=== PATIENT | female | born 1955 | race Caucasian/White ===

== ENCOUNTER → 2020-02-09 11:27 | Outpatient (BNVA) | payer SELFPAY | PROVIDERS: Family Provider Nurse Practitioner; PCP Nurse Practitioner; Visit Provider Nurse Practitioner Family | DX: R30.0 Dysuria (principal) | CPT/HCPCS: 81000 ==

== ENCOUNTER → 2020-08-22 13:24 | Outpatient (BNVA) | payer MEDICARE, BC, SELFPAY | PROVIDERS: Family Provider Nurse Practitioner; PCP Nurse Practitioner; Visit Provider Nurse Practitioner | DX: M47.16 Other spondylosis with myelopathy, lumbar region (principal); E55.9 Vitamin D deficiency, unspecified; Z13.6 Encounter for screening for cardiovascular disorders; R91.1 Solitary pulmonary nodule | CPT/HCPCS: 80053; 80061; 82306; 84443; 85025 ==

== ENCOUNTER 2020-08-26 08:20 | Outpatient (CLI) | payer MEDICARE, BC, SELFPAY ==
--- NOTE | 2020-08-26 08:30 | CT_ITS ---
WS: [id number] CT scan of the chest with IV contrast, additional two-dimensional coronal and sagittal reconstruction was performed. 08/26/2020 Clinical Data: R91.1 - Solitary pulmonary nodule Comparison: CT chest, 02/21/2007, PA and lateral chest, 12/03/2018. DLP: 196.19 mGy-cm. All CT scans at [facility] use at least one of these dose optimization techniques: automat ed exposure control; mA and/or kV adjustment per patient size (includes targeted exams where dose is matched to clinical indication); or iterative reconstruction. Findings: No nodules, masses or effusions are seen. No pneumonia or pneumothorax is present. The heart size is normal with no pericardial effusion. There are coronary artery calcifications. The pulmonary arterial system and thoracic aorta demonstrate no abnormalities or dilatations. The thyroid gland shows reynaldo l enhancement. The trachea bifurcates normally into the bronchi. There is no axillary or significant mediastinal adenopathy. The upper abdomen demonstrates no abnormalities. There is minimal osteoarthritic change of the thorac ic vertebral bodies. CT/CT chest w con* [id number] Impression: Negative CT scan of the chest with IV contrast.
[2020-08-26] MEDS: iohexol 300 mg/mL 100 mL Btl IV (08:59)
== END 2020-08-26 08:21 | disposition home or self-care (01) ==
LOC: RADWPI 08:22
PROVIDERS: Family Provider Nurse Practitioner; PCP Nurse Practitioner; Visit Provider Nurse Practitioner
DX: R91.1 Solitary pulmonary nodule (principal)
CPT/HCPCS: 71260; Q9967

== ENCOUNTER → 2021-01-30 13:27 | Outpatient (BNVA) | payer MEDICARE, BC, SELFPAY | PROVIDERS: Family Provider Nurse Practitioner; PCP Nurse Practitioner; Visit Provider Nurse Practitioner | DX: J44.9 Chronic obstructive pulmonary disease, unspecified (principal); M47.16 Other spondylosis with myelopathy, lumbar region; I10 Essential (primary) hypertension; E55.9 Vitamin D deficiency, unspecified; F41.9 Anxiety disorder, unspecified | CPT/HCPCS: 80053; 82306 ==

== ENCOUNTER → 2021-08-18 10:28 | Outpatient (BNVA) | payer MEDICARE, BC, SELFPAY | PROVIDERS: Family Provider Nurse Practitioner; PCP Nurse Practitioner; Visit Provider Nurse Practitioner | DX: I10 Essential (primary) hypertension (principal) | CPT/HCPCS: 80053; 80061; 82607; 84443; 85025 ==

== ENCOUNTER → 2022-02-28 15:14 | Outpatient (BNVA) | payer MEDICARE, BC, SELFPAY | PROVIDERS: Family Provider Nurse Practitioner; PCP Nurse Practitioner; Visit Provider Nurse Practitioner | DX: I10 Essential (primary) hypertension (principal); J44.9 Chronic obstructive pulmonary disease, unspecified; E55.9 Vitamin D deficiency, unspecified | CPT/HCPCS: 80053; 80061; 82306; 84443; 85025 ==

== ENCOUNTER → 2022-06-04 10:34 | Outpatient (BNVA) | payer MEDICARE, BC, SELFPAY | PROVIDERS: Family Provider Nurse Practitioner; PCP Nurse Practitioner; Visit Provider Nurse Practitioner | DX: F41.9 Anxiety disorder, unspecified (principal); J44.9 Chronic obstructive pulmonary disease, unspecified; I10 Essential (primary) hypertension | CPT/HCPCS: 80053; 80061; 84443; 85025 ==

== ENCOUNTER → 2022-09-17 08:58 | Outpatient (BNVA) | payer MEDICARE, BC, SELFPAY | PROVIDERS: Family Provider Nurse Practitioner; PCP Nurse Practitioner; Visit Provider Nurse Practitioner | DX: I10 Essential (primary) hypertension (principal); F41.9 Anxiety disorder, unspecified; J44.9 Chronic obstructive pulmonary disease, unspecified | CPT/HCPCS: 80053; 80061; 84443; 85025 ==

== ENCOUNTER → 2023-01-02 10:50 | Outpatient (BNVA) | payer MEDICARE, BC, SELFPAY | PROVIDERS: Family Provider Nurse Practitioner; PCP Nurse Practitioner; Visit Provider Nurse Practitioner | DX: F41.9 Anxiety disorder, unspecified (principal); I10 Essential (primary) hypertension; E78.2 Mixed hyperlipidemia | CPT/HCPCS: 80053; 80061; 84443; 85025 ==

== ENCOUNTER → 2023-06-20 11:01 | Outpatient (BNVA) | payer MEDICARE, BC, SELFPAY | PROVIDERS: Family Provider Nurse Practitioner; PCP Nurse Practitioner; Visit Provider Nurse Practitioner | DX: E78.2 Mixed hyperlipidemia; I10 Essential (primary) hypertension; E55.9 Vitamin D deficiency, unspecified | CPT/HCPCS: 71046; 80053; 82306; 85025; 85651; 86140 ==

== ENCOUNTER → 2023-09-19 10:14 | Outpatient (BNVA) | payer MEDICARE, BC, SELFPAY | PROVIDERS: Family Provider Nurse Practitioner; PCP Nurse Practitioner; Visit Provider Nurse Practitioner | DX: F41.9 Anxiety disorder, unspecified (principal); E78.2 Mixed hyperlipidemia; J44.9 Chronic obstructive pulmonary disease, unspecified; M47.16 Other spondylosis with myelopathy, lumbar region; J30.89 Other allergic rhinitis; J30.2 Other seasonal allergic rhinitis; I10 Essential (primary) hypertension; J43.1 Panlobular emphysema | CPT/HCPCS: 80053; 80061; 84443 ==

== ENCOUNTER → 2023-10-31 14:41 | Outpatient (BNVA) | payer MEDICARE, BC, SELFPAY | PROVIDERS: Family Provider Nurse Practitioner; PCP Nurse Practitioner; Visit Provider Nurse Practitioner | DX: R19.7 Diarrhea, unspecified (principal) | CPT/HCPCS: 87045; 87427; 87449; 87493 ==

== ENCOUNTER → 2023-11-14 11:46 | Outpatient (BNVA) | payer MEDICARE, BC, SELFPAY | PROVIDERS: Family Provider Nurse Practitioner; PCP Nurse Practitioner; Visit Provider Nurse Practitioner Family | DX: J02.9 Acute pharyngitis, unspecified (principal) | CPT/HCPCS: 87070; 87880 ==

== ENCOUNTER 2023-11-17 03:31 | Emergency (ER) | payer MEDICARE, SELFPAY ==
[2023-11-17 03:44] VITALS: BP 136/72; PULSE 89; RESP 18; TEMP 36.8; O2SAT 96; BMI 24.5
--- NOTE | 2023-11-17 03:56 | USR_ITS ---
PROCEDURE INFORMATION: Exam: US Duplex Left Lower Extremity Veins, Limited Exam date and time: 11/17/2023 5:08 AM Age: 68 years old Clinical indication: Pain; Leg, lower; Left TECHNIQUE: Imaging protocol: Real-time duplex ultrasound of the left extremity with 2-D solorzano scale, color Doppler flow and spectral waveform analysis including responses to compression and other maneuvers (when performed) with image documentation. Limited exam focused on the left lower extremity veins. COMPARISON: No relevant prior studies available. FINDINGS: Left deep veins: Unremarkable. The common femoral, femoral, proximal profunda femoral and popliteal veins are patent without thrombus. Normal Doppler waveforms. Normal compressibility and/or augmentation response. Superficial veins: Greater saphenous vein at the saphenofemoral junction is patent without thrombus. Soft tissues: Unremarkable. US/CV venous duplex [facility] [id number] IMPRESSION: No evidence of deep vein thrombosis.
[2023-11-17] MEDS: dexamethasone 4 mg Tablet 10 MG PO (04:04)
[2023-11-17] MEDS: HYDROcodone-acetaminophen 5-325 mg Tablet 1 TAB PO (04:04)
--- NOTE | 2023-11-17 05:11 | ED_ITS ---
HPI - Neck Pain/Injury General: Chief Complaint: Neck Pain/Injury Stated Complaint: pain up neck and when breathing maybe new med Time Seen by Provider: 11/17/23 03:47 History of Present Illness: Patient presents with sore throat x 4 days. Had strep test which was neg 4 days ago but placed on Augmentin empirically. Patient states she still has sore throat. Also complaining of left calf tenderness. No trauma. Hurts to walk on it or with palpation. Review of Systems ENMT: Denies: uvular edema PFSH ED PFSH: Medical History Cigarette smoker Seasonal and perennial allergic rhinitis COPD (chronic obstructive pulmonary disease) Essential (primary) hypertension Lumbar spondylosis with myelopathy Chronic back pain Lung nodule < 6cm on CT Surgical History History of bilateral tubal ligation Family History Mother Cancer Father Cancer Social History Smoking and tobacco/nicotine status: current every day tobacco/nicotine user cigarettes Packs smoked per day: 1 Second hand smoke exposure: Yes Alcohol intake: never Substance/Drug Use: never Adopted: No Caregiver/support person: No Lives independently: Yes Household members: spouse Housing: House Marital status: service: No Current occupational status: employed Do you think of yourself as: Straight/Heterosexual Current gender identity: Female Physical Exam Const: COMMON NORMALS: no acute distress HENMT: THROAT: posterior oropharynx normal, uvula midline and tonsils absent; no peritonsillar mass, no postnasal drainage and no uvular edema Lymph: LYMPHATIC: lymphadenopathy (Anterior and posterior cervical lymphadenopathy noted) Resp: COMMON NORMALS: normal respiratory effort Extremity: LEFT LOWER EXTREMITY: Yes lower leg (Left calf tenderness to palpation) Course Vital Signs: Vital signs: Vital Signs Temperature 98.3 F 11/17/23 03:44 Pulse Rate 89 11/17/23 03:44 Respiratory Rate 18 11/17/23 03:44 Blood Pressure 136/72 11/17/23 03:44 Pulse Oximetry 96 11/17/23 03:44 MDM - Neck Pain/Injury Medical Decision Making Patient has been on Augmentin with no relief and has had a negative strep test and most likely patient's symptoms are from viral pharyngitis. There is no signs of CAGE MAKER MACHINE or RPA. Patient does not have any change in voice. Has no trismus. Has no neck stiffness. No meningeal signs. Patient does have bilateral anterior lymphadenopathy and posterior lymphadenopathy. Patient was given dexamethasone and pain medicine for this. Denies any indication for antibiotics at this time. Patient also with left calf tenderness. Tenderness is mostly on the anterior aspect of the calf most likely musculoskeletal will get ultrasound to rule out DVT. This was negative for any DVT. Will discharge patient with steroids to help with symptoms All radiology interpretation(s) finalized by discharge Discharge Plan Discharge Patient Disposition: Home Clinical Impression: Pharyngitis, Lymphadenopathy, Strain of left calf muscle Condition: Stable Prescriptions: New Medrol (Negrito) 4 mg tablets,dose pack See Rx Instructions .ROUTE .COMPLEX Qty: 21 0RF Rx Instructions: for 6 days No Action ibuprofen 200 mg capsule 200 mg PO Q6H PRN Hold Instructions: Kidney injury omega 9-[id number]-fish oil [Fish Oil] 1,000 mg (120 mg-180 mg) capsule 1 cap PO BID Qty: 60 0RF Rx Instructions: OTC albuterol sulfate 2.5 mg /3 mL (0.083 %) solution for nebulization 2.5 mg inhalation Q4H PRN (Reason: shortness of breath or wheezing) Qty: 75 5RF (DME) Disposable nebulizer circuit See Rx Instructions .ROUTE .MEDSUPPLY Qty: 1 0RF Rx Instructions: As directed amoxicillin-pot clavulanate 875-125 mg tablet 1 tab PO BID Qty: 20 0RF (DME) nebulizers Misc See Rx Instructions .ROUTE .MEDSUPPLY Qty: 1 0RF Rx Instructions: As directed prednisone 10 mg tablet 10 mg PO DAILY Qty: 7 0RF citalopram 40 mg tablet 40 mg PO DAILY 30 Days Qty: 30 2RF fenofibrate nanocrystallized [Tricor] 145 mg tablet 145 mg PO DAILY Qty: 30 2RF gabapentin 300 mg capsule 300 mg PO BID Qty: 60 2RF levalbuterol tartrate [Xopenex HFA] 45 mcg/actuation HFA aerosol inhaler 2 inh inhalation Q6H Qty: 15 2RF montelukast [Singulair] 10 mg tablet 10 mg PO DAILY Qty: 30 2RF tizanidine 2 mg tablet 2 mg PO .PM dose Qty: 30 2RF tramadol 50 mg tablet 50 mg PO Q6H PRN (Reason: pain) Qty: 120 2RF valsartan [Diovan] 320 mg tablet 320 mg PO DAILY Qty: 30 2RF fluticasone propion-salmeterol [Advair Diskus] 250-50 mcg/dose blister with device 1 inh inhalation Q12H Qty: 60 2RF promethazine-DM 6.25-15 mg/5 mL syrup 5 - 10 ml PO Q6H PRN (Reason: cough) Qty: 240 0RF prednisone 20 mg tablet 20 mg PO BID Qty: 10 0RF levofloxacin 500 mg tablet 500 mg PO DAILY Qty: 7 0RF (DME) nebulizer accessories Kit See Rx Instructions .Route Qty: 1 0RF Rx Instructions: As directed Discharge Orders: Discharge ED (Routine); Ordered 11/17/23 Ordered By: Hemal Harrison Referrals: Robyn Hernandez, ORGANIZATIONAL DEVELOPMENT DIRECTOR-C [Primary Care Provider] - Discharge Diet: Advance as tolerated Discharge Activity: Resume usual activity Patient Instructions: Opioid Safety, Pain Management Coding Level of Care Code ED 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
[2023-11-17 05:54] VITALS: BP 136/72; PULSE 89; RESP 18; TEMP 36.8; O2SAT 96
== END 2023-11-17 05:55 | disposition home or self-care (01) ==
PROVIDERS: Emergency Provider Emergency Medicine; PCP Nurse Practitioner
DX: J02.9 Acute pharyngitis, unspecified (principal); R59.1 Generalized enlarged lymph nodes; S86.112A Strain of other muscle(s) and tendon(s) of posterior muscle group at lower leg level, left leg, initial encounter; F17.210 Nicotine dependence, cigarettes, uncomplicated; J44.9 Chronic obstructive pulmonary disease, unspecified; I10 Essential (primary) hypertension; X58.XXXA Exposure to other specified factors, initial encounter
CPT/HCPCS: 93971; 99284; J8540

== ENCOUNTER 2023-12-08 17:22 | Emergency (ER) | payer MEDICARE, SELFPAY ==
[2023-12-08] VITALS (13 sets, daily range): BP systolic 107–155; BP diastolic 65–81; PULSE 107–125; RESP 13–34; TEMP 37.2; O2SAT 86–99; BMI 26.0
--- NOTE | 2023-12-08 17:47 | XRR_ITS ---
PROCEDURE INFORMATION: Exam: XR Chest Exam date and time: 12/08/2023 5:56 PM Age: 68 years old Clinical indication: Chest pressure; Patient HX: PT arrived with full body rigors with C/O i'm freezing , chest pain, SOB, neck/jaw pain that has been ongoing for a few days but worsened today. PT was shaking so much that an ekg was unable to be done in triage, PT moved to a room. Spo2 couldn't gather information so oxygen was placed d/t pt's increased work of breathing and tachypnea TECHNIQUE: Imaging protocol: Radiologic exam of the chest. Views: 1 view. COMPARISON: CR XR chest 2V* [id number] 06/20/2023 11:01 AM FINDINGS: Lungs: Mild pulmonary hyperinflation is similar to prior. Bibasilar atelectasis. No focal consolidation. Pleural spaces: Unremarkable. No pleural effusion. No pneumothorax. Heart/Mediastinum: Stable cardiomediastinal contours. Vasculature: Atherosclerotic aortic calcifications. Bones/joints: Unremarkable. XR/XR chest 1V portable [id number] IMPRESSION: 1. No acute findings. 2. Stable mild cardiomegaly without failure.
--- NOTE | 2023-12-08 17:47 | ECG_ITS ---
[facility] Test Date: 2023-12-08 Pat Name: Destiny Palm Department: Room: Gender: Female Long Term Care Phlebotomist: : 1955 Requested By: Benjamin Arango Order Number: [id number] Jessica MD: Kenzie Rico M.D. Measurements Intervals [place] Rate: 108 P: 75 OH: 132 QRS: 21 QRSD: 86 T: 69 QT: 343 QTc: 462 Interpretive Statements SINUS TACHYCARDIA ABNORMAL RHYTHM ECG No previous ECG available for comparison Electronically Signed On 12-08-2023 20:38:18 CDT by Kenzie Rico M.D. [email or web address]
--- NOTE | 2023-12-08 17:49 | W.ED.CHESTPA ---
Documented by User: Benjamin Ingram DO 12/09/23 05:45 HPI - Chest Pain General: Chief Complaint: Chest Pain Stated Complaint: chest pains, SOB, neck and back pain Time Seen by Provider: 12/08/23 17:47 History of Present Illness: 68-year-old female presents to the emergency room with complaints of chest pain shortness of breath pain radiates into her neck and back. She has no known history of coronary artery disease. No recent trauma no fever sweats chills no productive cough. Patient describes pain as feeling a ripping sensation into her back and into her neck. No associated shortness of breath no orthopnea she has no known history of coronary artery disease Associated symptoms: Deny abdominal pain, dyspnea or fever(s) Related Data Home Medications Medication Instructions Recorded Confirmed ibuprofen 200 mg capsule 200 mg PO Q6H PRN 02/09/20 11/14/23 Previous Rx's Medication Instructions Recorded nebulizers #1 ea 06/20/23 prednisone 10 mg tablet 10 mg PO DAILY #7 tabs 06/20/23 Disposable nebulizer circuit #1 ea 07/01/23 albuterol sulfate 2.5 mg/3 mL 2.5 mg (3 mL) inhalation Q4H PRN 07/01/23 (0.083 %) solution for nebulization shortness of breath or wheezing #75 mL omega 9-hmq-clg-fish oil 1,000 mg 1 cap PO BID #60 caps 07/01/23 (120 mg-180 mg) capsule (Fish Oil) citalopram 40 mg tablet 40 mg PO DAILY 30 days #30 tabs 09/19/23 fenofibrate nanocrystallized 145 145 mg PO DAILY #30 tabs 09/19/23 mg tablet (Tricor) fluticasone 250 mcg-salmeterol 50 1 inh inhalation Q12H #60 ea 09/19/23 mcg/dose blistr powdr for inhalation (Advair Diskus) gabapentin 300 mg capsule 300 mg PO BID #60 caps 09/19/23 levalbuterol tartrate 45 2 inh inhalation Q6H #15 grams 09/19/23 mcg/actuation aerosol inhaler (Xopenex HFA) montelukast 10 mg tablet 10 mg PO DAILY #30 tabs 09/19/23 (Singulair) tizanidine 2 mg tablet 2 mg PO .PM dose #30 tabs 09/19/23 tramadol 50 mg tablet 50 mg PO Q6H PRN pain #120 tabs 09/19/23 valsartan 320 mg tablet (Diovan) 320 mg PO DAILY #30 tabs 09/19/23 levofloxacin 500 mg tablet 500 mg PO DAILY #7 tabs 10/04/23 nebulizer accessories #1 ea 10/04/23 prednisone 20 mg tablet 20 mg PO BID #10 tabs 10/04/23 promethazine-DM 6.25 mg-15 mg/5 mL 5 - 10 ml PO Q6H PRN cough #240 mL 10/04/23 oral syrup amoxicillin 875 mg-potassium 1 tab PO BID #20 tabs 11/14/23 clavulanate 125 mg tablet methylprednisolone 4 mg tablets in See Rx Instructions PO .COMPLEX 11/17/23 a dose pack (Medrol (Negrito)) #21 ea Allergies Allergy/AdvReac Type Severity Reaction Status Date / Time Sulfa (Sulfonamide Allergy ALGY-Hives Verified 12/08/23 17:46 Antibiotics) Review of Systems Const: Denies: fever(s) or chills Card: Denies: chest pain Resp: Denies: dyspnea GI: Denies: abdominal pain : Denies: dysuria, urinary frequency or urinary urgency Musc: Denies: neck pain or back pain Skin/Breast: Denies: rash PFSH ED PFSH: Medical History Cigarette smoker Seasonal and perennial allergic rhinitis COPD (chronic obstructive pulmonary disease) Essential (primary) hypertension Lumbar spondylosis with myelopathy Chronic back pain Lung nodule < 6cm on CT Surgical History History of bilateral tubal ligation Family History Mother Cancer Father Cancer Social History Smoking and tobacco/nicotine status: current every day tobacco/nicotine user cigarettes Packs smoked per day: 1 Second hand smoke exposure: Yes Alcohol intake: never Substance/Drug Use: never Adopted: No Caregiver/support person: No Lives independently: Yes Household members: spouse Housing: House Marital status: service: No Current occupational status: employed Do you think of yourself as: Straight/Heterosexual Current gender identity: Female Physical Exam Const: GENERAL APPEARANCE: cooperative ORIENTATION/CONSCIOUSNESS: Yes awake, Yes oriented to person, Yes oriented to place and Yes oriented to time HENMT: COMMON NORMALS: normocephalic, atraumatic and hearing grossly normal bilaterally HEAD & SCALP: normocephalic and atraumatic Resp: COMMON NORMALS: normal respiratory effort, No retractions, No use of accessory muscles and clear to auscultation bilaterally AUSCULTATION: clear to auscultation bilaterally Cardio: COMMON NORMALS: regular rhythm and No murmurs present (Cardio) RATE: tachycardic RHYTHM: regular rhythm GI: COMMON NORMALS: Soft to palpation and No hepatosplenomegaly present AUSCULTATION: Yes normoactive bowel sounds PALPATION: Yes Soft to palpation, No Tenderness to palpation present (GI), No Guarding due to palpation present (GI) and Yes No hepatosplenomegaly present Extremity: COMMON NORMALS: normal to inspection, capillary refill normal, no clubbing, cyanosis or edema, no calf tenderness and no pedal edema OTHER: Femoral pulses equal bilaterally Neuro: SENSORIUM/ORIENTATION: Yes oriented to person, Yes oriented to place and Yes oriented to time Skin: COMMON NORMALS: no rashes or lesions noted GENERAL SKIN EXAM: no rashes or lesions noted Course Vital Signs: Vital signs: Vital Signs Temperature 98.9 F 12/08/23 17:31 Pulse Rate 123 H 12/08/23 19:45 Respiratory Rate 16 12/08/23 19:45 Blood Pressure 107/77 12/08/23 19:45 Pulse Oximetry 91 12/08/23 19:45 Oxygen Delivery Me thod Room Air 12/08/23 19:45 MDM - Chest Pain Medical Decision Making Initial chest x-ray no widening of the mediastinum discussed case with Dr. Thomas. CTA chest has been ordered. Care signed out to Dr. Thomas at change of shift. See final notes for diagnosis and disposition. 68-year-old female with chest pain tearing into her back. I received this patient in checkout at shift change. Troponin was minimally elevated. Patient was persistently tachycardic. Chest x-ray was stable. CTA of the chest shows acute focal rupture of the right lateral wall of the ascending thoracic aorta with a small to moderate amount of blood. Spoke with chest surgery at [facility]. He is requesting more images currently. I have an accepting physician (josh) in the ER should he choose to accept the patient. She will go by air. [facility] is en route. Current vitals, blood pressure 107/77, heart rate sinus 120, saturations 94% on room air, respirations 22. Spoke with CTS again after having viewed additional images. He is willing to take the patient. ER has accepted. Air crew is here to transfer. she remains awake and alert. vitals stable. Lab Data 12/08/23 18:04 12/08/23 18:04 Radiology Impressions Chest X-Ray 12/08/23 17:47 IMPRESSION: 1. No acute findings. 2. Stable mild cardiomegaly without failure. Chest CTA 12/08/23 19:45 IMPRESSION: 1. 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 2. Remainder stable. COMMENTS: The presence of pulmonary emphysema on CT is an independent risk factor for lung cancer. In the absence of a history or active diagnosis of lung cancer, it is recommended that this patient with emphysema be evaluated for enrollment in a low dose CT lung cancer screening program. Laboratory Results WBC 7.07 10^3/uL (3.29-11.43) 12/08/23 18:04 RBC 3.52 10^6/uL (3.85-5.65) L 12/08/23 18:04 Hgb 11.00 g/dL (11.27-16.99) L 12/08/23 18:04 Hct 35.0 % (36-47) L 12/08/23 18:04 MCV 99.4 fl (85-98) H 12/08/23 18:04 MCH 31.3 pg (27-33) 12/08/23 18:04 MCHC 31.4 g/dL (30-55) 12/08/23 18:04 RDW 13.9 % (12.1-15.1) 12/08/23 18:04 Plt Count 288 10^3/cmm (157-399) 12/08/23 18:04 MPV 9.5 fL (7.4-10.4) 12/08/23 18:04 Neut % (Auto) 88.6 % 12/08/23 18:04 Lymph % (Auto) 8.2 % 12/08/23 18:04 Lee % (Auto) 2.1 % 12/08/23 18:04 Eos % (Auto) 0.1 % 12/08/23 18:04 Baso % (Auto) 0.6 % 12/08/23 18:04 Neut # (Auto) 6.26 10^3/uL (1.8-7.7) 12/08/23 18:04 Lymph # (Auto) 0.6 10^3/uL (0.8-4.8) L 12/08/23 18:04 Lee # (Auto) 0.2 10^3/uL (0.2-0.9) 12/08/23 18:04 Eos # (Auto) 0.0 10^3/uL (0.0-0.8) 12/08/23 18:04 Baso # (Auto) 0.0 10^3/uL (0.0-0.1) 12/08/23 18:04 Nucleated RBC % (auto) 0 % 12/08/23 18:04 Nucleated RBCs # 0.0 /100WBC 12/08/23 18:04 Sodium 139 mmol/L (136-145) 12/08/23 18:04 Potassium 4.2 mmol/L (3.5-5.1) 12/08/23 18:04 Chloride 100 mmol/L (98-107) 12/08/23 18:04 Carbon Dioxide 25 mmol/L (22-29) 12/08/23 18:04 Anion Gap 18.2 (5-19) 12/08/23 18:04 BUN 13 mg/dL (8-23) 12/08/23 18:04 Creatinine 0.8 mg/dL (0.5-0.9) 12/08/23 18:04 GFR Calculation 71.3 mL/min (90-130) L 12/08/23 18:04 Glucose 110 mg/dL (65-115) 12/08/23 18:04 Calculated Osmolality 289 mOsm/kg (285-295) 12/08/23 18:04 Lactic Acid 1.9 mmol/L (0.5-2.2) 12/08/23 18:04 Calcium 9.1 mg/dL (8.5-10.5) 12/08/23 18:04 Total Bilirubin 0.9 mg/dL (0.15-1.2) 12/08/23 18:04 AST 25 U/L (0-32) 12/08/23 18:04 ALT 25 U/L (0-33) 12/08/23 18:04 Alkaline Phosphatase 70 U/L (35-105) 12/08/23 18:04 Troponin T Baseline 14 ng/L (0-10) H 12/08/23 18:04 NT-Pro-B Natriuret Pep 1760 pg/mL (0-125) H 12/08/23 18:04 Total Protein 6.3 g/dL (6.6-8.7) L 12/08/23 18:04 Albumin 4.0 g/dL (3.5-5.2) 12/08/23 18:04 Globulin 2.3 g/dL (1.3-4.6) 12/08/23 18:04 Adenovirus (PCR) Not detected (NOT DETECT) 12/08/23 18:20 C. pneumoniae DNA (PCR) Not detected (NOT DETECT) 12/08/23 18:20 Coronavirus 229E (PCR) Not detected (NOT DETECT) 12/08/23 18:20 Human Metapneumovir PCR Not detected (NOT DETECT) 12/08/23 18:20 Influenza A (H1) PCR Not detected (NOT DETECT) 12/08/23 18:20 Influ A (H1/09) PCR Not detected (NOT DETECT) 12/08/23 18:20 Influenza A (H3) PCR Not detected (NOT DETECT) 12/08/23 18:20 Influenza Type A (PCR) Not detected (NOT DETECT) 12/08/23 18:20 Influenza Type B (PCR) Not detected (NOT DETECT) 12/08/23 18:20 M. pneumoniae (PCR) Not detected (NOT DETECT) 12/08/23 18:20 Parainfluenza 1 (PCR) Not detected (NOT DETECT) 12/08/23 18:20 Parainfluenza 2 (PCR) Not detected (NOT DETECT) 12/08/23 18:20 Parainfluenza 3 (PCR) Not detected (NOT DETECT) 12/08/23 18:20 Parainfluenza 4 (PCR) Not detected (NOT DETECT) 12/08/23 18:20 RSV Type A (PCR) Not detected (NOT DETECT) 12/08/23 18:20 RSV Type B (PCR) Not detected (NOT DETECT) 12/08/23 18:20 Entero/Rhino (PCR) Not detected (NOT DETECT) 12/08/23 18:20 SARS-CoV-2 (PCR) Not detected (NOT DETECT) 12/08/23 18:20 Discharge Plan Discharge Patient Disposition: Xfer Short-Term Hosp Clinical Impression: Ascending aortic dissection Condition: Critical Referrals: Robyn Hernandez, INDRAC [Primary Care Provider] - Coding Level of Care Code ED Hand Binder Stripper for Chg Fwd Documented by User: Naveed Thomas DO 12/08/23 22:12 HPI - Chest Pain General: Chief Complaint: Chest Pain Stated Complaint: chest pains, SOB, neck and back pain Time Seen by Provider: 12/08/23 17:47 Related Data Home Medications Medication Instructions Recorded Confirmed ibuprofen 200 mg capsule 200 mg PO Q6H PRN 02/09/20 11/14/23 Previous Rx's Medication Instructions Recorded nebulizers #1 ea 06/20/23 prednisone 10 mg tablet 10 mg PO DAILY #7 tabs 06/20/23 Disposable nebulizer circuit #1 ea 07/01/23 albuterol sulfate 2.5 mg/3 mL 2.5 mg (3 mL) inhalation Q4H PRN 07/01/23 (0.083 %) solution for nebulization shortness of breath or wheezing #75 mL omega 3-ajc-mdh-fish oil 1,000 mg 1 cap PO BID #60 caps 07/01/23 (120 mg-180 mg) capsule (Fish Oil) citalopram 40 mg tablet 40 mg PO DAILY 30 days #30 tabs 09/19/23 fenofibrate nanocrystallized 145 145 mg PO DAILY #30 tabs 09/19/23 mg tablet (Tricor) fluticasone 250 mcg-salmeterol 50 1 inh inhalation Q12H #60 ea 09/19/23 mcg/dose blistr powdr for inhalation (Advair Diskus) gabapentin 300 mg capsule 300 mg PO BID #60 caps 09/19/23 levalbuterol tartrate 45 2 inh inhalation Q6H #15 grams 09/19/23 mcg/actuation aerosol inhaler (Xopenex HFA) montelukast 10 mg tablet 10 mg PO DAILY #30 tabs 09/19/23 (Singulair) tizanidine 2 mg tablet 2 mg PO .PM dose #30 tabs 09/19/23 tramadol 50 mg tablet 50 mg PO Q6H PRN pain #120 tabs 09/19/23 valsartan 320 mg tablet (Diovan) 320 mg PO DAILY #30 tabs 09/19/23 levofloxacin 500 mg tablet 500 mg PO DAILY #7 tabs 10/04/23 nebulizer accessories #1 ea 10/04/23 prednisone 20 mg tablet 20 mg PO BID #10 tabs 10/04/23 promethazine-DM 6.25 mg-15 mg/5 mL 5 - 10 ml PO Q6H PRN cough #240 mL 10/04/23 oral syrup amoxicillin 875 mg-potassium 1 tab PO BID #20 tabs 11/14/23 clavulanate 125 mg tablet methylprednisolone 4 mg tablets in See Rx Instructions PO .COMPLEX 11/17/23 a dose pack (Medrol (Negrito)) #21 ea Allergies Allergy/AdvReac Type Severity Reaction Status Date / Time Sulfa (Sulfonamide Allergy ALGY-Hives Verified 12/08/23 17:46 Antibiotics) [facility] ED PFSH: Medical History Cigarette smoker Seasonal and perennial allergic rhinitis COPD (chronic obstructive pulmonary disease) Essential (primary) hypertension Lumbar spondylosis with myelopathy Chronic back pain Lung nodule < 6cm on CT Surgical History History of bilateral tubal ligation Family History Mother Cancer Father Cancer Social History Smoking and tobacco/nicotine status: current every day tobacco/nicotine user cigarettes Packs smoked per day: 1 Second hand smoke exposure: Yes Alcohol intake: never Substance/Drug Use: never Adopted: No Caregiver/support person: No Lives independently: Yes Household members: spouse Housing: House Marital status: service: No Current occupational status: employed Do you think of yourself as: Straight/Heterosexual Current gender identity: Female Course Vital Signs: Vital signs: Vital Signs Temperature 98.9 F 12/08/23 17:31 Pulse Rate 123 H 12/08/23 19:45 Respiratory Rate 16 12/08/23 19:45 Blood Pressure 107/77 12/08/23 19:45 Pulse Oximetry 91 12/08/23 19:45 Oxygen Delivery Me thod Room Air 12/08/23 19:45 MDM - Chest Pain Medical Decision Making 68-year-old female with chest pain tearing into her back. I received this patient in checkout at shift change. Troponin was minimally elevated. Patient was persistently tachycardic. Chest x-ray was stable. CTA of the chest shows acute focal rupture of the right lateral wall of the ascending thoracic aorta with a small to moderate amount of blood. Spoke with chest surgery at [facility]. He is requesting more images currently. I have an accepting physician (josh) in the ER should he choose to accept the patient. She will go by air. [employer] [facility] is en route. Current vitals, blood pressure 107/77, heart rate sinus 120, saturations 94% on room air, respirations 22. Spoke with CTS again after having viewed additional images. He is willing to take the patient. ER has accepted. Air crew is here to transfer. she remains awake and alert. vitals stable. Lab Data 12/08/23 18:04 12/08/23 18:04 Radiology Impressions Chest X-Ray 12/08/23 17:47 IMPRESSION: 1. No acute findings. 2. Stable mild cardiomegaly without failure. Chest CTA 12/08/23 19:45 IMPRESSION: 1. 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 2. Remainder stable. COMMENTS: The presence of pulmonary emphysema on CT is an independent risk factor for lung cancer. In the absence of a history or active diagnosis of lung cancer, it is recommended that this patient with emphysema be evaluated for enrollment in a low dose CT lung cancer screening program. Laboratory Results WBC 7.07 10^3/uL (3.29-11.43) 12/08/23 18:04 RBC 3.52 10^6/uL (3.85-5.65) L 12/08/23 18:04 Hgb 11.00 g/dL (11.27-16.99) L 12/08/23 18:04 Hct 35.0 % (36-47) L 12/08/23 18:04 MCV 99.4 fl (85-98) H 12/08/23 18:04 MCH 31.3 pg (27-33) 12/08/23 18:04 MCHC 31.4 g/dL (30-55) 12/08/23 18:04 RDW 13.9 % (12.1-15.1) 12/08/23 18:04 Plt Count 288 10^3/cmm (157-399) 12/08/23 18:04 MPV 9.5 fL (7.4-10.4) 12/08/23 18:04 Neut % (Auto) 88.6 % 12/08/23 18:04 Lymph % (Auto) 8.2 % 12/08/23 18:04 Lee % (Auto) 2.1 % 12/08/23 18:04 Eos % (Auto) 0.1 % 12/08/23 18:04 Baso % (Auto) 0.6 % 12/08/23 18:04 Neut # (Auto) 6.26 10^3/uL (1.8-7.7) 12/08/23 18:04 Lymph # (Auto) 0.6 10^3/uL (0.8-4.8) L 12/08/23 18:04 Lee # (Auto) 0.2 10^3/uL (0.2-0.9) 12/08/23 18:04 Eos # (Auto) 0.0 10^3/uL (0.0-0.8) 12/08/23 18:04 Baso # (Auto) 0.0 10^3/uL (0.0-0.1) 12/08/23 18:04 Nucleated RBC % (auto) 0 % 12/08/23 18:04 Nucleated RBCs # 0.0 /100WBC 12/08/23 18:04 Sodium 139 mmol/L (136-145) 12/08/23 18:04 Potassium 4.2 mmol/L (3.5-5.1) 12/08/23 18:04 Chloride 100 mmol/L (98-107) 12/08/23 18:04 Carbon Dioxide 25 mmol/L (22-29) 12/08/23 18:04 Anion Gap 18.2 (5-19) 12/08/23 18:04 BUN 13 mg/dL (8-23) 12/08/23 18:04 Creatinine 0.8 mg/dL (0.5-0.9) 12/08/23 18:04 GFR Calculation 71.3 mL/min (90-130) L 12/08/23 18:04 Glucose 110 mg/dL (65-115) 12/08/23 18:04 Calculated Osmolality 289 mOsm/kg (285-295) 12/08/23 18:04 Lactic Acid 1.9 mmol/L (0.5-2.2) 12/08/23 18:04 Calcium 9.1 mg/dL (8.5-10.5) 12/08/23 18:04 Total Bilirubin 0.9 mg/dL (0.15-1.2) 12/08/23 18:04 AST 25 U/L (0-32) 12/08/23 18:04 ALT 25 U/L (0-33) 12/08/23 18:04 Alkaline Phosphatase 70 U/L (35-105) 12/08/23 18:04 Troponin T Baseline 14 ng/L (0-10) H 12/08/23 18:04 NT-Pro-B Natriuret Pep 1760 pg/mL (0-125) H 12/08/23 18:04 Total Protein 6.3 g/dL (6.6-8.7) L 12/08/23 18:04 Albumin 4.0 g/dL (3.5-5.2) 12/08/23 18:04 Globulin 2.3 g/dL (1.3-4.6) 12/08/23 18:04 Adenovirus (PCR) Not detected (NOT DETECT) 12/08/23 18:20 C. pneumoniae DNA (PCR) Not detected (NOT DETECT) 12/08/23 18:20 Coronavirus 229E (PCR) Not detected (NOT DETECT) 12/08/23 18:20 Human Metapneumovir PCR Not detected (NOT DETECT) 12/08/23 18:20 Influenza A (H1) PCR Not detected (NOT DETECT) 12/08/23 18:20 Influ A (H1/09) PCR Not detected (NOT DETECT) 12/08/23 18:20 Influenza A (H3) PCR Not detected (NOT DETECT) 12/08/23 18:20 Influenza Type A (PCR) Not detected (NOT DETECT) 12/08/23 18:20 Influenza Type B (PCR) Not detected (NOT DETECT) 12/08/23 18:20 M. pneumoniae (PCR) Not detected (NOT DETECT) 12/08/23 18:20 Parainfluenza 1 (PCR) Not detected (NOT DETECT) 12/08/23 18:20 Parainfluenza 2 (PCR) Not detected (NOT DETECT) 12/08/23 18:20 Parainfluenza 3 (PCR) Not detected (NOT DETECT) 12/08/23 18:20 Parainfluenza 4 (PCR) Not detected (NOT DETECT) 12/08/23 18:20 RSV Type A (PCR) Not detected (NOT DETECT) 12/08/23 18:20 RSV Type B (PCR) Not detected (NOT DETECT) 12/08/23 18:20 Entero/Rhino (PCR) Not detected (NOT DETECT) 12/08/23 18:20 SARS-CoV-2 (PCR) Not detected (NOT DETECT) 12/08/23 18:20 All radiology interpretation(s) finalized by discharge Critical Care Time Critical Care Time: Total Critical Care Time: 40 Attestation: This case had a high probability of a clinically significant, sudden, or life threatening deterioration of this patient's condition which required my full and direct attention, intervention and personal management. Time is independent of any procedures performed. Discharge Plan Discharge Patient Disposition: Xfer Short-Term Hosp Clinical Impression: Ascending aortic dissection Condition: Critical Referrals: Robyn Hernandez, PHOTOGRAPHIC EQUIPMENT INSPECTOR-C [Primary Care Provider] - Coding Level of Care Code ED Hand Binder Stripper for Clara Laughlin
[2023-12-08] MEDS: aspirin 81 mg Chew Tablet 324 MG PO (18:06)
[2023-12-08 18:18] LABS: Basophils % 0.6 %; Eosinophils % 0.1 %; Lymphocytes # 0.6 10^3/uL (0.8-4.8); Lymphocytes % 8.2 %; Mean Corpuscular HGB Conc 31.4 g/dL (30-55); Mean Corpuscular Hemoglobin 31.3 pg (27-33); Mean Corpuscular Volume 99.4 fl (85-98); Mean Platelet Volume 9.5 fL (7.4-10.4); Monocytes # 0.2 10^3/uL (0.2-0.9); Monocytes % 2.1 %; Neutrophils # 6.26 10^3/uL (1.8-7.7); Neutrophils % 88.6 %; Nucleated Red Blood Cells % 0 %; Platelet Count 288 10^3/cmm (157-399); Red Blood Count 3.52 10^6/uL (3.85-5.65); Red Cell Distribution Width 13.9 % (12.1-15.1); White Blood Count 7.07 10^3/uL (3.29-11.43)
--- NOTE | 2023-12-08 18:35 | CTR_ITS ---
PROCEDURE INFORMATION: Exam: CTA Chest With Contrast Exam date and time: 12/08/2023 6:51 PM Age: 68 years old Clinical indication: Shortness of breath and other: Tachycardia; Chest pressure; Patient HX: C/O chest pain with SOB. Tachycardic. History of copd. ; Additional info: Chest pain tachycardia TECHNIQUE: Imaging protocol: Computed tomographic angiography of the chest with contrast. Exam focused on the arteries. 3D rendering (Not supervised by radiologist): MIP and/or 3D reconstructed images were created by the technologist. Radiation optimization: All CT scans at this facility use at least one of these dose optimization techniques: automated exposure control; mA and/or kV adjustment per patient size (includes targeted exams where dose is matched to clinical indication); or iterative reconstruction. Contrast material: OMNI 350; Contrast volume: 60 ml; Contrast route: INTRAVENOUS (IV); COMPARISON: CT chest w con* [id number] 08/26/2020 8:39 AM RADIATION DOSE METRICS: Total DLP (mGy-cm): 224.75 FINDINGS: Pulmonary arteries: Normal. No pulmonary emboli. Great vessels off aortic arch: Aberrant origin of the right subclavian artery, normal anatomic variant. Aorta: A focal wall defect is seen along the right lateral aspect of the ascending aorta with a contained focus of contrast measuring approximately 1.0 x 0.7 x 1.1 cm (series 6, image 186). There is ill-defined complex fluid in the surrounding mediastinum extending along the ascending aorta in the origins of the great vessels. Ill-defined fluid and fat stranding courses inferiorly in the anterior mediastinum as well. Moderate atherosclerotic calcifications of the thoracic aorta. The aorta is nonaneurysmal. Lungs: Moderate centrilobular and paraseptal emphysematous changes. No focal consolidation or generalized interstitial process. Areas of mild reticular opacity/scarring and subsegmental atelectasis. Pleural spaces: Unremarkable. No pneumothorax. No pleural effusion. Heart: Moderate cardiomegaly. Small to moderate pericardial effusion measuring up to 1.2 cm in thickness anteriorly. The fusion is complex. Coronary arteries: Multivessel coronary artery calcifications. Lymph nodes: Unremarkable. No enlarged lymph nodes. Bones/joints: Unremarkable. No acute fracture. Soft tissues: Unremarkable. CT/CT angio chest PE protcl [id number] IMPRESSION: 1. Acute focal rupture of the right lateral wall of the ascending thoracic aorta with a small penetrating atherosclerotic ulcer versus pseudoaneurysm. Small to moderate amount of complex fluid/hematoma in the surrounding mediastinum resulting in hemomediastinum/hemopericardium. No definite dissection flap is seen within the aorta. 2. Moderate cardiomegaly. 3. Moderate emphysema. No acute findings in the lungs. THIS REPORT CONTAINS FINDINGS THAT MAY BE CRITICAL TO PATIENT CARE. The findings were verbally communicated via telephone conference with ROBER DOW at 7:12 PM CDT on 12/08/2023. The findings were acknowledged and understood. COMMENTS: The presence of pulmonary emphysema on CT is an independent risk factor for lung cancer. In the absence of a history or active diagnosis of lung cancer, it is recommended that this patient with emphysema be evaluated for enrollment in a low dose CT lung cancer screening program.
[2023-12-08 18:41] LABS: Troponin(5th) Baseline 14 ng/L (0-10)
[2023-12-08 18:44] LABS: Alanine Aminotransferase 25 U/L (0-33); Alkaline Phosphatase 70 U/L (35-105); Anion Gap 18.2 (5-19); Aspartate Amino Transferase 25 U/L (0-32); Blood Urea Nitrogen 13 mg/dL (8-23); Calcium 9.1 mg/dL (8.5-10.5); Carbon Dioxide 25 mmol/L (22-29); Chloride 100 mmol/L (98-107); Creatinine Clr Calc Pharmacy 57.0758; Globulin 2.3 g/dL (1.3-4.6); Glomerular Filtration Rate 71.3 mL/min (90-130); Glucose 110 mg/dL (65-115); Lactic Sepsis W/Reflex 1.9 mmol/L (0.5-2.2); Osmolality Calculated 289 mOsm/kg (285-295); Potassium 4.2 mmol/L (3.5-5.1); Sodium 139 mmol/L (136-145); Total Bilirubin 0.9 mg/dL (0.15-1.2); Total Protein 6.3 g/dL (6.6-8.7)
[2023-12-08] MEDS: iohexol 350 mg/mL 500 mL Btl (per mL) IV ×2 (18:55→19:49)
[2023-12-08] MEDS: ondansetron 2 mg/ML SDV 2 mL 4 MG IVP (19:14)
[2023-12-08] MEDS: morphine 4 mg/mL SDV 1 mL IVP (19:16)
[2023-12-08 19:28] LABS: NT Pro B Type Natriuretic Pept 1760 pg/mL (0-125)
--- NOTE | 2023-12-08 19:45 | CTR_ITS ---
PROCEDURE INFORMATION: Exam: CTA Chest With Contrast Exam date and time: 12/08/2023 7:48 PM Age: 68 years old Clinical indication: Other: Abnormal chest CT; Patient HX: Wall defect with fluid collection to RT lateral ascending aorta noted on pe exam. Transferring CT surgeon requested. ; Additional info: Aortic defect. CT surgeon requested. TECHNIQUE: Imaging protocol: Computed tomographic angiography of the chest with contrast. Exam focused on the arteries. 3D rendering (Not supervised by radiologist): MIP and/or 3D reconstructed images were created by the technologist. Radiation optimization: All CT scans at this facility use at least one of these dose optimization techniques: automated exposure control; mA and/or kV adjustment per patient size (includes targeted exams where dose is matched to clinical indication); or iterative reconstruction. Contrast material: OMNI 350; Contrast volume: 100 ml; Contrast route: INTRAVENOUS (IV); COMPARISON: CT angio chest PE protcl [id number] 12/08/2023 6:51 PM RADIATION DOSE METRICS: Total DLP (mGy-cm): 387.58 FINDINGS: Pulmonary arteries: Top-normal caliber. No pulmonary emboli. Great vessels off aortic arch: Aberrant origin of the right subclavian artery. Aorta: Again seen is a small focal defect along the right lateral aspect of the ascending aortic wall which again measures 1.0 x 0.6 x 1.1 cm. Similar amount of complex fluid in the adjacent mediastinum and tracking down the anterior mediastinum. Moderate atherosclerotic aortic calcifications. The aorta is nonaneurysmal. Lungs: Stable moderate emphysematous changes in the lungs with scattered areas of scarring. No airspace disease. Pleural spaces: Unremarkable. No pneumothorax. No pleural effusion. Heart: Stable complex moderate-sized pericardial fluid. Stable cardiomegaly. Coronary arteries: Coronary artery calcifications most pronounced along the LAD. Lymph nodes: Unremarkable. No enlarged lymph nodes. Bones/joints: Degenerative changes of the spine. No acute fracture. Soft tissues: Unremarkable. CT/CT angio chest [id number] IMPRESSION: 1. 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 2. Remainder stable. COMMENTS: The presence of pulmonary emphysema on CT is an independent risk factor for lung cancer. In the absence of a history or active diagnosis of lung cancer, it is recommended that this patient with emphysema be evaluated for enrollment in a low dose CT lung cancer screening program.
[2023-12-08 20:39] LABS: Adenovirus Not Detected (NOT DETECT); Chlamydia Pneumoniae Not Detected (NOT DETECT); Coronavirus 229E,HKU1,NL63,OC4 Not Detected (NOT DETECT); Human Metapneumovirus Not Detected (NOT DETECT); Human Rhinovirus/Enterovirus Not Detected (NOT DETECT); Influenza A Not Detected (NOT DETECT); Influenza A H1 Not Detected (NOT DETECT); Influenza A H1-2009 Not Detected (NOT DETECT); Influenza A H3 Not Detected (NOT DETECT); Influenza B Not Detected (NOT DETECT); Mycoplasma Pneumoniae Not Detected (NOT DETECT); Parainfluenza Virus Type 1 Not Detected (NOT DETECT); Parainfluenza Virus Type 2 Not Detected (NOT DETECT); Parainfluenza Virus Type 3 Not Detected (NOT DETECT); Parainfluenza Virus Type 4 Not Detected (NOT DETECT); Respiratory Syncytial Virus A Not Detected (NOT DETECT); Respiratory Syncytial Virus B Not Detected (NOT DETECT); SARS-COV-2 Not Detected (NOT DETECT)
== END 2023-12-08 20:00 | disposition short-term general hospital (02) ==
PROVIDERS: Family Medicine; Emergency Provider Emergency Medicine; PCP Nurse Practitioner
DX: I71.010 Dissection of ascending aorta (principal); J44.9 Chronic obstructive pulmonary disease, unspecified; I10 Essential (primary) hypertension; F17.210 Nicotine dependence, cigarettes, uncomplicated; Z11.52 Encounter for screening for COVID-19
CPT/HCPCS: 36415; 71045; 71275; 80053; 83605; 83880; 84484; 85025; 87040; 87486; 87581; 87633; 93005; 96374; 96375; 99285; J2270; J2405; Q9967

== ENCOUNTER → 2024-01-14 12:10 | Outpatient (BNVA) | payer MEDICARE, BC, SELFPAY | PROVIDERS: PCP Nurse Practitioner; Visit Provider Nurse Practitioner | DX: Z01.89 Encounter for other specified special examinations (principal) | CPT/HCPCS: 85025 ==

== ENCOUNTER → 2024-01-15 13:58 | Outpatient (BNVA) | payer MEDICARE, BC, SELFPAY | PROVIDERS: PCP Nurse Practitioner; Visit Provider Nurse Practitioner | DX: E55.9 Vitamin D deficiency, unspecified (principal); D64.9 Anemia, unspecified | CPT/HCPCS: 80053; 82306; 82607; 83540 ==

== ENCOUNTER 2024-01-22 14:56 | Outpatient (CLI) | payer MEDICARE, BC, SELFPAY ==
[2024-01-22 15:39] LABS: Basophils # 0.1 10^3/uL (0.0-0.1); Basophils % 1.5 %; Eosinophils # 0.1 10^3/uL (0.0-0.8); Eosinophils % 1.6 %; Hematocrit 33.7 % (36-47); Mean Corpuscular HGB Conc 31.8 g/dL (30-55); Mean Corpuscular Volume 94.4 fl (85-98); Mean Platelet Volume 10.3 fL (7.4-10.4); Monocytes # 0.8 10^3/uL (0.2-0.9); Monocytes % 9.5 %; Neutrophils # 4.69 10^3/uL (1.8-7.7); Neutrophils % 53.1 %; Nucleated Red Blood Cells % 0 %; Platelet Count 290 10^3/cmm (157-399); Red Blood Count 3.57 10^6/uL (3.85-5.65); Red Cell Distribution Width 14.5 % (12.1-15.1); White Blood Count 8.84 10^3/uL (3.29-11.43)
[2024-01-22 15:47] LABS: Alanine Aminotransferase 19 U/L (0-33); Albumin Level 3.2 g/dL (3.5-5.2); Alkaline Phosphatase 121 U/L (35-105); Anion Gap 11.2 (5-19); Aspartate Amino Transferase 29 U/L (0-32); Blood Urea Nitrogen 11 mg/dL (8-23); Calcium 8.7 mg/dL (8.5-10.5); Carbon Dioxide 26 mmol/L (22-29); Chloride 101 mmol/L (98-107); Globulin 3.1 g/dL (1.3-4.6); Glomerular Filtration Rate 62.3 mL/min (90-130); Glucose 96 mg/dL (65-115); Osmolality Calculated 275 mOsm/kg (285-295); Potassium 5.2 mmol/L (3.5-5.1); Sodium 133 mmol/L (136-145); Total Bilirubin 0.2 mg/dL (0.15-1.2); Total Protein 6.3 g/dL (6.6-8.7)
== END 2024-01-22 14:57 | disposition home or self-care (01) ==
PROVIDERS: PCP Nurse Practitioner; Visit Provider Nurse Practitioner
DX: T82.6XXA Infection and inflammatory reaction due to cardiac valve prosthesis, initial encounter (principal); I71.00 Dissection of unspecified site of aorta; X58.XXXA Exposure to other specified factors, initial encounter
CPT/HCPCS: 80053; 85025

== ENCOUNTER 2024-01-29 11:56 | Outpatient (CLI) | payer MEDICARE, BC, SELFPAY ==
[2024-01-29 12:15] LABS: Basophils # 0.1 10^3/uL (0.0-0.1); Basophils % 1.5 %; Eosinophils # 0.1 10^3/uL (0.0-0.8); Eosinophils % 2.5 %; Hematocrit 26.3 % (36-47); Lymphocytes % 41.9 %; Mean Corpuscular HGB Conc 31.6 g/dL (30-55); Mean Corpuscular Hemoglobin 29.3 pg (27-33); Mean Corpuscular Volume 92.9 fl (85-98); Mean Platelet Volume 10.1 fL (7.4-10.4); Monocytes # 0.6 10^3/uL (0.2-0.9); Monocytes % 12.8 %; Neutrophils # 1.95 10^3/uL (1.8-7.7); Neutrophils % 41.1 %; Nucleated Red Blood Cells % 0 %; Platelet Count 323 10^3/cmm (157-399); Red Blood Count 2.83 10^6/uL (3.85-5.65); Red Cell Distribution Width 14.4 % (12.1-15.1); White Blood Count 4.75 10^3/uL (3.29-11.43)
[2024-01-29 12:48] LABS: Alanine Aminotransferase 68 U/L (0-33); Albumin Level 2.8 g/dL (3.5-5.2); Alkaline Phosphatase 295 U/L (35-105); Anion Gap 15.1 (5-19); Aspartate Amino Transferase 113 U/L (0-32); Blood Urea Nitrogen 11 mg/dL (8-23); Carbon Dioxide 24 mmol/L (22-29); Chloride 104 mmol/L (98-107); Globulin 2.7 g/dL (1.3-4.6); Glomerular Filtration Rate 99.4 mL/min (90-130); Glucose 101 mg/dL (65-115); Osmolality Calculated 288 mOsm/kg (285-295); Potassium 4.1 mmol/L (3.5-5.1); Sodium 139 mmol/L (136-145); Total Bilirubin 0.2 mg/dL (0.15-1.2); Total Protein 5.5 g/dL (6.6-8.7)
== END 2024-01-29 11:57 | disposition home or self-care (01) ==
PROVIDERS: PCP Nurse Practitioner; Visit Provider Nurse Practitioner
DX: I77.89 Other specified disorders of arteries and arterioles (principal); T82.6XXA Infection and inflammatory reaction due to cardiac valve prosthesis, initial encounter; X58.XXXA Exposure to other specified factors, initial encounter
CPT/HCPCS: 80053; 85025

== ENCOUNTER → 2024-02-19 09:04 | Outpatient (BNVA) | payer MEDICARE, BC, SELFPAY | PROVIDERS: PCP Nurse Practitioner; Visit Provider Nurse Practitioner | DX: M47.16 Other spondylosis with myelopathy, lumbar region (principal) | CPT/HCPCS: 80053; 85025 ==

== ENCOUNTER 2024-04-01 07:53 | Outpatient (CLI) | payer MEDICARE, BC, SELFPAY ==
--- NOTE | 2024-04-01 07:56 | XR_ITS ---
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 Findings: No compression fractures are seen. The disc heights are normal. There is minimal spurring o f the anterior inferior aspect of C4, C5 and C6. There is no prevertebral soft tissue swelling. The o dontoid is unremarkable. The soft tissues of the neck and the lung apices are normal. XR/XR cervical spine 3V* [id number] Impression: Minimal osteoarthritis of vertebral bodies C4-C6.
--- NOTE | 2024-04-01 07:56 | XR_ITS ---
WS: [email or web address] Left shoulder, 2 views, 04/01/2024 Clinical Data: M25.512 - Pain in left shoulder Comparison: None. Findings: No fractures or dislocations are seen. The AC joint shows mild osteoarthritis. There is minimal irreg ularity of the greater tuberosity the adjacent left clavicle, left scapula and ribs are normal. The s oft tissues are unremarkable. XR/XR shoulder LT min 2V* [id number] Impression: 1. 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 2. Mild osteoarthritis of the left greater tuberosity.
--- NOTE | 2024-04-01 07:56 | XR_ITS ---
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 Findings: There is a kyphosis of the thoracic spine with minimal wedge deformities of the midthoracic vertebral bodies. There is anterior osteoarthritic change. The disc heights are well-preserved. Osteoporosis i s present. No paravertebral abnormalities are seen. Extensive midline sutures and sternotomy repair a re seen. There are mediastinal clips. There is left pleural reaction. XR/XR thoracic spine 3V* [id number] Impression: 1. Kyphosis of the thoracic spine with minimal wedge deformities of the midthor acic vertebral bodies. 2. 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
--- NOTE | 2024-04-01 07:56 | XR_ITS ---
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 Findings: No compression fractures or subluxation is seen. There is degenerative disc narrowing at L4-L5. Minim al anterior osteophytes are present L1-L4. There is a slight dextroscoliosis. The transverse processe s and SI joints are normal. XR/XR lumbar spine 2-3V* [id number] Impression: 1. Degenerative disc narrowing at L4-L5. 2. Minimal osteoarthritis L1-L4 with a slight dextroscoliosis.
== END 2024-04-01 07:54 | disposition home or self-care (01) ==
LOC: RAD 07:55
PROVIDERS: PCP Nurse Practitioner; Visit Provider Nurse Practitioner
DX: M47.16 Other spondylosis with myelopathy, lumbar region (principal); M40.204 Unspecified kyphosis, thoracic region; M47.814 Spondylosis without myelopathy or radiculopathy, thoracic region; M81.0 Age-related osteoporosis without current pathological fracture; M51.360 Other intervertebral disc degeneration, lumbar region with discogenic back pain only; M25.78 Osteophyte, vertebrae
CPT/HCPCS: 72040; 72072; 72100; 73030

== ENCOUNTER → 2024-05-20 09:47 | Outpatient (BNVA) | payer MEDICARE, BC, SELFPAY | PROVIDERS: PCP Nurse Practitioner; Visit Provider Nurse Practitioner | DX: E55.9 Vitamin D deficiency, unspecified (principal); D64.9 Anemia, unspecified | CPT/HCPCS: 80053; 80061; 82306; 82607; 83540; 84443; 85025 ==

== ENCOUNTER → 2024-07-21 15:04 | Outpatient (BNVA) | payer MEDICARE, SELFPAY | PROVIDERS: PCP Nurse Practitioner; Visit Provider Internal Medicine Cardiovascular Disease | DX: R07.9 Chest pain, unspecified (principal); I21.9 Acute myocardial infarction, unspecified | CPT/HCPCS: 93005 ==

== ENCOUNTER → 2024-08-31 11:00 | Outpatient (BNVA) | payer MEDICARE, SELFPAY | PROVIDERS: PCP Nurse Practitioner; Visit Provider Clinical Nurse Specialist Adult Health | DX: J43.1 Panlobular emphysema (principal); J90 Pleural effusion, not elsewhere classified | CPT/HCPCS: 71046 ==

== ENCOUNTER → 2024-11-17 12:25 | Outpatient (BNVA) | payer MEDICARE, SELFPAY | PROVIDERS: PCP Nurse Practitioner; Visit Provider Nurse Practitioner | DX: I10 Essential (primary) hypertension (principal); E78.2 Mixed hyperlipidemia; E55.9 Vitamin D deficiency, unspecified | CPT/HCPCS: 80053; 80061; 82306; 82607; 84443; 85025 ==